=== PATIENT | male | born 1985 | race Caucasian/White ===

== ENCOUNTER 2023-01-30 19:14 | Emergency (ER) | payer MEDICAID ==
[~2023-01-30] VITALS: Ht 172.7 cm; Wt 77.1 kg
--- NOTE | 2023-01-30 19:19 | NUR ---
PT. [facility]I LIVE. PLACED IN BED 06.
[2023-01-30 19:20] VITALS: BP 145/89
--- NOTE | 2023-01-30 20:39 | NUR ---
PT. TAKEN TO CT VIA [facility]
--- NOTE | 2023-01-30 20:53 | NUR ---
PT. BACK FROM CT
--- NOTE | 2023-01-30 20:58 | NUR ---
37YR OLD MALE BIB EMS C/O CP S/P "INGESTION OF HEROIN" PT IS ALERT A&OX4 RESP EVEN AND UNLABORED. PT ON BEDSIDE POKE IN. DENIES SOB DENIES PAIN RADIATING TO OTHER AREAS. PT IS IN [employer]USTODY [place] [employer] AT BEDSIDE. NKDA NO MED HX
--- NOTE | 2023-01-30 22:08 | NUR ---
PT ASLEEP ON BEDSIDE MONITOR RESP EVEN AND UNLABORED. PD AT BEDSIDE. PENDING DISPO FOR MED CLEAR FOR BOOKING
--- NOTE | 2023-01-30 22:48 | NUR ---
PT REFUSED STRAIGHT CATH. UNABLE TO URINATE FOR UDS. DR LAO AWARE
--- NOTE | 2023-01-30 22:55 | NUR ---
POSION CONTR[employer] CONTACTED. ADVICE TO DO LAB WORK WATCH PT FOR 6HRS IF PT AT BASELINE DISPO PT
[2023-01-30 23:33] LABS: ACETAMINOPHEN < 0.5 ug/ml (10-30); ALBUMIN 3.7 g/dL (3.4-5.0); ANION GAP 13.5 (8-16); ASPARTATE AMINOTRANSFERASE 26 U/L (15-37); CARBON DIOXIDE 27.3 mmol/L (21-32); CHLORIDE 103 mmol/L (98-107); CREATININE 0.9 mg/dL (0.6-1.3); GFR ARICAN-AMERICAN 123 mL/min (>90); GLUCOSE 112 mg/dL (74-106); POTASSIUM 3.8 mmol/L (3.5-5.1); SALICYLATE < 2.8 mg/dL (2.8-20.0); SODIUM SERUM 140 mmol/L (136-145); TOTAL BILIRUBIN 0.4 mg/dL (0.0-1.0); UREA NITROGEN, BLOOD 15 mg/dL (7-18)
[2023-01-31 00:26] VITALS: BP 133/83
--- NOTE | 2023-01-31 00:26 | NUR ---
Patient discharged with v/s stable. Written and verbal after care instructions given and explained. Patient verbalized understanding. Ambulatory with in custody. All questions addressed prior to discharge. Advised to follow up with PMD.
== END 2023-01-31 00:30 ==
LOC: MED 19:14
DX: F11.10 Opioid abuse, uncomplicated (principal)
CPT/HCPCS: 36415; 74176; 80053; 99284; G0480; G0482

== ENCOUNTER 2023-04-19 08:36 | Emergency (ER) | payer MEDICAID ==
[~2023-04-19] VITALS: Ht 167.6 cm; Wt 75.7 kg
[2023-04-19 08:51] VITALS: BP 156/95; PULSE 108; RESP 16; TEMP 97.6; O2SAT 98
[2023-04-19 11:09] LABS: HIV RAPID SCREEN NON-REACTIVE (NON REACTIV)
== END 2023-04-19 11:00 | disposition home or self-care (01) ==
LOC: MED 08:36
DX: A53.9 Syphilis, unspecified (principal)
CPT/HCPCS: 86592; 99283

== ENCOUNTER 2023-12-31 11:24 | Emergency (ER) | payer MEDICAID ==
[~2023-12-31] VITALS: Ht 167.6 cm; Wt 79.4 kg
[2023-12-31 11:27] VITALS: BP 138/81; PULSE 109; RESP 18; TEMP 97.9; O2SAT 94
[2023-12-31] MEDS: KETOROLAC 60 MG/2 ML VIAL IM ONE (12:17)
[2023-12-31] MEDS ORDERED: ACET-10509 PO (12:19)
[2023-12-31] MEDS ORDERED: IBUP-2213 PO (12:19)
[2023-12-31 12:26] VITALS: BP 138/81; PULSE 106; RESP 20; TEMP 97.9; O2SAT 97
== END 2023-12-31 12:26 | disposition home or self-care (01) ==
LOC: MED 11:24
DX: S90.32XA Contusion of left foot, initial encounter (principal); J45.909 Unspecified asthma, uncomplicated; Z79.1 Long term (current) use of non-steroidal anti-inflammatories (NSAID); V48.2XXA Person on outside of car injured in noncollision transport accident in nontraffic accident, initial encounter; Y93.89 Activity, other specified; Y92.89 Other specified places as the place of occurrence of the external cause; Y99.8 Other external cause status
CPT/HCPCS: 73630; 96372; 99283; J1885